=== PATIENT | female | born 1940 | race Caucasian/White ===

== ENCOUNTER → 2016-12-19 | Outpatient (CLI) | payer MEDICARE ==
[~2016-12-19] MED LIST: ALTACE10 MG PO; CALCITRATE PO; CEFDINIR 300MG300 MG PO; CHEWABLE ASPIRI81 MG PO; EVISTA60 MG PO; FELODIPINE10 MG PO; HYDROCHLOROTHIA25 M1 PO; MULTI VITAMINS1 TAB PO; PRAVASTATIN 40M40 MG PO; PREDNISONE 5MG.5 MG PO; PREDNISONE5 M1 PO; VITAMIN B12250 MCG PO; VITAMIN C500 M3 PO
--- NOTE | 2016-12-20 18:42 | RADIOLOGY REPORT PS360 ---
DIG MAMM-SCREEN RENATO W/CAD CAD Screening COMPARISON: Digital mammograms 03/03/2014 and 12/07/2015 INDICATION: There is a history of breast cancer in patient's sister diagnosed in her 20s, the patient is on [employer] TECHNIQUE: Standard CC and MLO images were obtained. R2 CAD reviewed. FINDINGS: The breasts are composed primarily of fat with minimal fibroglandular densities in the central portions of both breast slightly more prominent right breast than left as noted previously. There is a mole marker right breast. There is no suspicious lesion and there are no suspicious microcalcifications. There are stable small nodes in both axilla. IMPRESSION: Stable exam with no suspicious lesion seen recommend yearly follow-up BI-RADS CATEGORY: 2_Benign RECOMMENDED FOLLOWUP: 12M 12 MONTH FOLLOW-UP (A letter has been sent to the patient regarding results of the study.)
== END ==
LOC: RAD 16:44
DX: Z12.31 Encounter for screening mammogram for malignant neoplasm of breast (principal)
CPT/HCPCS: G0202

== ENCOUNTER → 2017-10-22 | Outpatient (CLI) | payer MEDICARE ==
--- NOTE | 2017-10-23 08:25 | RADIOLOGY REPORT PS360 ---
BONE DENSITOMETRY(HIP:LT SPINE COMPARISON: DEXA scan 11/03/2015 HISTORY: All of known osteopenia TECHNIQUE: DEXA scanning lumbar spine and hips FINDINGS: The average BMD lumbar spine L1-L4 is 1.533 g centimeters square with a T score of 2.9. However as mentioned previously the values and lumbar spine may be somewhat skewed due to the hyperdensity focus at the L1-2 level. The total BMD right hip is 0.831 g/sq cm with a T score of -1.4 and the right femoral neck is 0.744 g centimeters square the T score score of -2.1 and these values are basically unchanged from previous exam. IMPRESSION: Table mild osteopenia right hip, readings left hip are similar, lumbar spine readings not considered accurate. Consider follow-up study in 2 years
== END ==
LOC: RAD 11:00
DX: M85.89 Other specified disorders of bone density and structure, multiple sites (principal)